=== PATIENT | female | born 1980 | race Caucasian/White ===

== ENCOUNTER 2018-11-17 16:11 | Outpatient (CLI) | payer MEDICAID, OTHER ==
[2018-11-18 10:21] LABS: BASOPHILS # (AUTO) 0.1 10^3/uL (0.0-0.1); BASOPHILS % (AUTO) 1.2 %; EOSINOPHILS # (AUTO) 0.1 10^3/uL (0.0-0.7); EOSINOPHILS % (AUTO) 2.9 %; HGB - HEMOGLOBIN 12.4 g/dL (12.0-16.0); LYMPHOCYTES % (AUTO) 40.5 %; MEAN CORPUSCULAR HEMOGLOBIN 30.3 pg (27.0-31.0); MEAN CORPUSCULAR HGB CONC 33.7 g/dL (32.0-36.0); MEAN CORPUSCULAR VOLUME 89.8 fL (81.0-99.0); MEAN PLATELET VOLUME 9.6 fL (7.9-10.8); MONOCYTES # (AUTO) 0.5 10^3/uL (0.0-1.0); MONOCYTES % (AUTO) 10.3 %; NEUTROPHILS # (AUTO) 2.2 10^3/uL (1.5-6.6); NEUTROPHILS % (AUTO) 45.1 %; PLT - PLATELET COUNT 329 10^3/uL (130-450); RED CELL DISTRIBUTION WIDTH 12.7 % (12.0-15.0); WHITE BLOOD COUNT 4.9 x10^3/uL (4.8-10.8)
[2018-11-18 10:36] LABS: ALBUMIN 4.6 g/dL (3.2-5.5); ALBUMIN/GLOBULIN RATIO 1.4 (1.0-2.2); BILIRUBIN,TOTAL 0.5 mg/dL (0.2-1.0); CALCIUM 9.2 mg/dL (8.5-10.3); CREATININE 0.6 mg/dL (0.4-1.0); TOTAL PROTEIN 7.9 g/dL (6.7-8.2)
[2018-11-18 10:57] LABS: FERRITIN 11.5 ng/mL (11.0-306.8)
== END 2018-11-17 23:59 | disposition home or self-care (01) ==
LOC: LAB.S 16:11
PROVIDERS: ATTEND Nurse Practitioner
DX: R53.83 Other fatigue (principal); R00.2 Palpitations
CPT/HCPCS: 36415; 80053; 82607; 82728; 82746; 82747; 83540; 84443; 84466; 85025

== ENCOUNTER 2021-06-21 16:00 | Outpatient (CLI) | payer BC, OTHER ==
[2021-06-21 19:16] LABS: BACTERIAL VAGINOSIS DNA NEGATIVE (NEGATIVE); CANDIDA GLABRATA DNA NEGATIVE (NEGATIVE); CANDIDA GROUP DNA NEGATIVE (NEGATIVE); CANDIDA KRUSEI DNA NEGATIVE (NEGATIVE); TRICHOMONAS VAGINALIS DNA NEGATIVE (NEGATIVE)
== END 2021-06-21 23:59 | disposition home or self-care (01) ==
LOC: LAB 16:00
PROVIDERS: ATTEND Obstetrics & Gynecology
DX: N89.8 Other specified noninflammatory disorders of vagina (principal)
CPT/HCPCS: 87661; 87801